=== PATIENT | female | born 1955 | race Caucasian/White ===

== ENCOUNTER 2024-08-25 11:42 | Emergency (ER) | payer MEDICARE, SELFPAY ==
[2024-08-25] VITALS (17 sets, daily range): BP systolic 139–183; BP diastolic 74–86; PULSE 46–56; RESP 12–21; TEMP 36.4–36.6; O2SAT 97–100
--- NOTE | ~2024-08-25 | CT_ITS ---
EXAMINATION: CT brain wo con DATE: 08/25/2024 12:26 INDICATION: Vertigo TECHNIQUE: Computed tomography (CT) of the head was performed without intravenous contrast. Sagittal and coronal reconstructions were performed. The mA was adjusted according to patient size. Iterative reconstruction technique was employed. The dose-length product was 605.33 mGy-cm. COMPARISON: None FINDINGS: Postoperative change of prior left mastoidectomy and cochlear implant placement. The power supply for the implant results in some streak artifact mildly limiting evaluation in the underlying left tempor al parietal region. The bilateral mastoid and middle ear cavities are clear. No acute intracranial he morrhage, acute infarction or abnormal extra axial fluid collection. Symmetric prominence of the sulc i consistent with mild age-appropriate diffuse cerebral volume loss. Ventricles are normal and symmet destini. No mass/mass effect. The orbits are normal. Mild mucoperiosteal thickening the bilateral ethmoid sinuses. IMPRESSION: 1. Normal aging brain. No acute intracranial process. 2. Status post left mastoidectomy with left cochlear implant placement. Reviewed, dictated and finalized at location B.
--- NOTE | ~2024-08-25 | CT_ITS ---
CTA chest PE protocol Ordering provider: Shadi Purcell MD History: 68 years Female with . elevated dimer, pre-syncope . Comparison: None. Technique: CT angiogram chest was performed following timed intravenous injection of contrast. Thin s lice axial images and reformatted coronal images were obtained. Three dimensional reformatted images of the chest were also obtained using a [employer] workstation. . Automated exposure control and iterati ve reconstruction technique were employed. The dose-length product was 297.90 mGy-cm. 100 mL Omnipaqu e 350 was given IV. Findings: PULMONARY ARTERIES: No pulmonary embolus. VISUALIZED THORACIC INLET: Normal. MEDIASTINUM: Aorta/coronary arteries: Mild atheromatous disease. Heart/other: The heart is not enlarged. Lymph nodes: No mediastinal or hilar adenopathy. LUNGS: No pulmonary nodules or masses. No infiltrates or effusions. No pneumothorax. VISUALIZED UPPER ABDOMEN: sliding hiatus hernia. Otherwise, the visualized upper abdomen is normal. MUSCULOSKELETAL: Soft tissues: The superficial soft tissues are normal. Bones: Age appropriate degenerative changes of the spine. IMPRESSION: 1. No pulmonary embolism. 2. No acute cardiopulmonary pathology. 3. Large sliding hiatus hernia. Reviewed, dictated and finalized at location A.
--- NOTE | 2024-08-25 11:53 | ECG_ITS ---
Test Date: 2024-08-25 12:01:11 Measurements Intervals [place] Rate: 48 P: 57 MI: 171 QRS: 42 QRSD: 97 T: 76 QT: 478 QTc: 431 Interpretive Statements SINUS BRADYCARDIA MODERATE T-WAVE ABNORMALITY, CONSIDER ANTEROLATERAL ISCHEMIA [-0.1+ mV T-WAVE IN V3-V6] No previous ECG available for comparison Electronically Signed On 08-25-2024 16:45:52 CDT by Bulmaro Trevino M.D.
[2024-08-25 12:07] LABS: Basophils Absolute Auto 0.1 K/mm3 (0.0-0.1); Basophils Percent Auto 0.8 % (0.2-1.2); Eosinophils Absolute Auto 0.3 K/mm3 (0-0.3); Eosinophils Percent Auto 4.4 % (0-4.4); Hematocrit 37.5 % (37.0-47.0); Hemoglobin 12.7 g/dL (12.0-15.0); Immature Granulocyte Absolute 0.01 K/mm3 (0.00-0.031); Immature Granulocyte Percent A 0.2 % (0-0.5); Lymphocytes Absolute Auto 1.74 K/mm3 (0.9-3.2); Lymphocytes Percent Auto 28.5 % (18.3-44.2); Mean Corpuscular HGB Conc 33.9 g/dl (32-36); Mean Corpuscular Hemoglobin 30.1 pg (26-34); Mean Corpuscular Volume 88.9 fl (80-100); Mean Platelet Volume 9.7 fl (7.4-10.4); Monocytes Absolute Auto 0.5 K/mm3 (0.1-0.6); Monocytes Percent Auto 7.5 % (2.6-8.5); Neutrophils Absolute Auto 3.6 K/mm3 (1.3-6.7); Neutrophils Percent Auto 58.6 % (45.5-73.1); Platelet Count Result 271 k/mm3 (150-375); Red Blood Count 4.22 M/mm3 (4.2-5.4); Red Cell Distribution Width 12.5 % (11.5-14.5); White Blood Count 6.1 K/mm3 (4.5-10.0)
[2024-08-25 12:18] LABS: Alanine Aminotransferase 26 U/L (6-35); Albumin Level 4.2 g/dL (3.5-5.1); Alkaline Phosphatase 75 U/L (38-126); Anion Gap 9 mmol/L (4-12); Aspartate Amino Transferase 29 U/L (14-36); Bilirubin,Total 0.5 mg/dL (0.2-1.3); Blood Urea Nitrogen 14 mg/dL (7-17); Calcium 8.8 mg/dL (8.4-10.2); Carbon Dioxide 25 mmol/L (22-30); Chloride 97 mmol/L (98-107); Estimated CRCL calculation 84 ml/min; Estimated Glomerular Filt Rate > 60; Glucose 95 mg/dL (65-110); Potassium 4.1 mmol/L (3.4-5.0); Sodium 131 mmol/L (137-145)
--- NOTE | 2024-08-25 13:16 | ED_ITS ---
HPI - Dizziness General Chief Complaint: Dizziness Stated Complaint: resolved dizziness/nausea; cough since 08/17 Time Seen by Provider: 08/25/24 11:57 History of Present Illness HPI Narrative: 68-year-old female presenting to the emergency room with chief complaint of intermittent dizziness with symptoms including room spinning sensations and feeling nauseated. Symptoms are intermittent in nature and not associated with any positional changes or exertion. Denies any headache or nauseousness presently. No vision changes. No chest pain shortness a breath, no chest tightness or neck pain. No injury or trauma. Patient states she does not have any chronic medical conditions aside from hypertension which he takes lisinopril 4. No changes to her medications recently. Normal blood glucose. States she has a remote history of vertigo many years ago and this feels similar. Has not take any medications for this. Symptoms have been going on for last 3 days according the patient intermittent. Patient states she has a history of low pulse in the 50s and that is not new for her. No cardiac history otherwise. Review of Systems 2 Review of Systems: As reviewed above in HPI Exam 2 Narrative: GENERAL: [Well-appearing, well-nourished, and in no acute distress.] HEAD: [Normocephalic, atraumatic.] EYES: [PERRLA and EOMI.] ENT: Nares clear, no rhinorrhea or epistaxis. Mucous membranes moist. NECK: Supple. CHEST: [Clear to auscultation. No respiratory distress.] HEART: Bradycardic rate, regular rhythm. No murmur heard. [Normal peripheral pulses.] ABDOMEN: [Soft, nondistended], [nontender], [No rigidity or guarding] EXTREMITIES: Normal range of motion. [No edema.] SKIN: Warm, dry, no rash. NEURO: [No focal deficits]. Alert and oriented [x3.] NIH 0. Normal strength and sensation throughout both arms and legs. No ataxia. No incoordination. No nystagmus. Extraocular movements are intact. PSYCH: [Normal mood and affect.] Course Vital Signs Vital signs: Vital Signs Temperature 36.4 C 08/25/24 11:42 Pulse Rate 50 L 08/25/24 11:42 Respiratory Rate 18 08/25/24 11:42 Blood Pressure 182/76 H 08/25/24 11:42 Pulse Oximetry 98 08/25/24 11:42 Oxygen Delivery Room Air 08/25/24 11:42 Temperature 36.6 C 08/25/24 13:16 Pulse Rate 51 L 08/25/24 15:31 Respiratory Rate 16 08/25/24 15:31 Blood Pressure 158/78 H 08/25/24 15:31 Pulse Oximetry 100 08/25/24 15:31 Oxygen Delivery Room Air 08/25/24 11:42 MDM - Dizziness MDM Narrative Medical decision making narrative: 68-year-old female with a past medical history including hypertension and chronic bradycardia. She presents to the emergency room with dizziness. She describes room spinning sensations associated nauseousness that are short-lived and not associated with positional changes or exertion. Remote history of vertigo. Denies any trauma or injury. Presently she is asymptomatic. Is noted to be hypertensive with a blood pressure 182/76. Pulse 50 and regular sinus bradycardia on the monitor and EKG. Normal temperature, normal oxygen. Has a normal neurological assessment without any focal findings. NIH is 0. Considerations presently are for benign positional paroxysmal vertigo, peripheral vertigo, central vertigo not excluded given patient's age, bradycardia causing hypoperfusion and vertiginous symptoms also possible. ACS possible but less likely. Low suspicion for acute occlusive process. Workup was ordered including CBC, CMP, D-dimer, EKG, troponin, CT of the head. Patient placed on traffic monitor specialist and pulse oximetry. Workup shows no leukocytosis or anemia. Normal platelet count. Electrolytes largely within normal limits, normal renal function, normal glucose and hepatic function. Negative troponin. Elevated D-dimer 1.[address] angiography of the chest was ordered to rule out thromboembolic event that could be causing symptoms such as this or any potential dissection although very unlikely. Normal TSH. Head CT shows normal aging brain, no acute process. CT scan shows no pulmonary embolism, no acute cardiopulmonary disease, large hiatal hernia noted. Patient was re-evaluated frequently, remained asymptomatic. Vital signs remained stable. Patient expressed desire to go home at this time and did not want any further workup. She is discharged home at this time and given referral back to her primary care provider for continued evaluation as well as return precautions provided. Sent a prescription for meclizine p.r.n. as this might help her symptoms if they are recurrent. Medical Records Attestation: I reviewed the patient's medical records. Lab Data Attestation: I reviewed the patient's lab results. 08/25/24 11:57 08/25/24 11:57 Labs: Lab Results 08/25/24 Range/Units 11:57 WBC 6.1 (4.5-10.0) K/mm3 RBC 4.22 (4.2-5.4) M/mm3 Hgb 12.7 (12.0-15.0) g/dL Hct 37.5 (37.0-47.0) % MCV 88.9 (80-100) fl MCH 30.1 (26-34) pg MCHC 33.9 (32-36) g/dl RDW 12.5 (11.5-14.5) % Plt Count 271 (150-375) k/mm3 MPV 9.7 (7.4-10.4) fl Immature Gran % (Auto) 0.2 (0-0.5) % Neut % (Auto) 58.6 (45.5-73.1) % Lymph % (Auto) 28.5 (18.3-44.2) % [place] % (Auto) 7.5 (2.6-8.5) % Eos % (Auto) 4.4 (0-4.4) % Baso % (Auto) 0.8 (0.2-1.2) % Lymph # (Auto) 1.74 (0.9-3.2) K/mm3 [place] # (Auto) 0.5 (0.1-0.6) K/mm3 Eos # (Auto) 0.3 (0-0.3) K/mm3 Baso # (Auto) 0.1 (0.0-0.1) K/mm3 Abs Immat Gran (auto) 0.01 (0.00-0.031) K/mm3 Absolute Neuts (auto) 3.6 (1.3-6.7) K/mm3 Absolute Nucleated RBC 0.000 (0.0-0.012) K/mm3 Nucleated RBC % 0.0 (0.0-0.2) % D-Dimer 1.30 H (<0.48) ug/mL Sodium 131 L (137-145) mmol/L Potassium 4.1 (3.4-5.0) mmol/L Chloride 97 L (98-107) mmol/L Carbon Dioxide 25 (22-30) mmol/L Anion Gap 9 (4-12) mmol/L BUN 14 (7-17) mg/dL Creatinine 0.54 L (0.7-1.0) mg/dL Estim Creat Clear Calc 84 ml/min Estimated GFR > 60 (59 - ) Glucose 95 (65-110) mg/dL Calcium 8.8 (8.4-10.2) mg/dL Total Bilirubin 0.5 (0.2-1.3) mg/dL AST 29 (14-36) U/L ALT 26 (6-35) U/L Alkaline Phosphatase 75 (38-126) U/L Troponin I < 0.012 (0.000-0.034) ng/mL Total Protein 7.0 (6.3-8.2) g/dL Albumin 4.2 (3.5-5.1) g/dL TSH (Reflex) 2.140 (0.465-4.68) uIU/mL Imaging Data Attestation: I personally reviewed and interpreted this imaging study as follows: My impression: Impressions Head CT 08/25/24 12:28 IMPRESSION: 1. Normal aging brain. No acute intracranial process. 2. Status post left mastoidectomy with left cochlear implant placement. Chest CTA 08/25/24 16:12 IMPRESSION: 1. No pulmonary embolism. 2. No acute cardiopulmonary pathology. 3. Large sliding hiatus hernia. Discharge Plan Discharge Clinical Impression: Vertigo, Dizziness Patient Disposition: Home, Self-Care Condition: Stable Instructions: Antibiotic Form, Vertigo (ED), Dizziness (ED) Additional Instructions: Your workup today was largely unremarkable. CT scan shows no acute pathology or injury. Electrolytes are normal. Negative cardiac enzyme. Your symptoms could be related to your blood pressure and heart rate or an underlying process in your ears that could be causing vertigo. Please call your regular doctor for close outpatient primary care provider follow-up and potential further investigations. We will send you home with meclizine which is a medication that can help if your symptoms return and to be taken as needed. Return to the ER if you start developing any lightheadedness to the point that you are going to pass out, chest pain, neck pain, weakness in the arms or legs, inability to walk, vision changes or any other concerns. Patient Language: Wolof Prescriptions: New meclizine 25 mg tablet 25 mg PO TID PRN (Reason: dizziness) 10 Days Qty: 30 0RF Follow-up/Referrals: Edis,Danica Olsen MD [Primary Care Provider] - Time of Disposition: 17:10
[2024-08-25 13:34] LABS: Troponin I < 0.012 ng/mL (0.000-0.034)
--- OUTSIDE RECORDS SUMMARY | 2024-08-25 14:25 | XMS_ITS | Encounter Summary ---
Author Organization [facility] Facility Care Team Providers Care Refractory Technician Name Role Phone Danica Randhawa MD Primary Care Provider Encounter Details Date Type Department Care Team (Latest Contact Info) Description 10/03/2017 Orders Only [facility] CLINCON[facility] ProviderCaitlyn MD [address] [place] [id number] Social History Tobacco Use Types Packs/Day Years Used Date Smoking Tobacco: Never Comments Unknown Sex and Gender Information Value Date Recorded Sex Assigned at Not on file Legal Sex Female 1:35 AM CARE MANAGEMENT ASSOCIATE Gender Identity Female 02/17/2021 3:48 PM CDT Sexual Orientation Straight 02/17/2021 3: 48 PM CDT documented as of this encounter Plan of Treatment Not on file documented as of this encounter Procedures Procedure Name Priority Date/Time Associated Diagnosis Comments SCAN - PATHOLOGY 10/04/2017 12:0 0 AM CDT documented in this encounter Results * SCAN - PATHOLOGY (10/04/2017 12:00 AM CDT) Narrative 10/04/2017 12:00 AM CDT Ordered by an unspecified provider. Historical Provider Final Res ult documented in this encounter Visit Diagnoses Not on filedocumented in this encounter Additional Health Concerns Infection Onset Date Last Indicated Resolved Time COVID: Suspected 01/05/2023 01/05/2023 01/05/2023 7:38 PM CDT COVID: Suspected 01/05/2023 01/05/2023 01/05/2023 10:10 PM CDT COVID: Suspected 07/15/2023 07/15/2023 07/15/2023 4:23 PM CARE MANAGEMENT ASSOCIATE COVID: Suspected 05/23/2024 05/23/2024 05/23/2024 10:31 AM CARE MANAGEMENT ASSOCIATE COVID19 05/23/2024 05/23/2024 06/02/2024 3:05 AM CARE MANAGEMENT ASSOCIATE documented as of this encounter Care Teams Refractory Technician Relationship Specialty Start Date End Date Danica Randhawa MD PCP - General 01/10/17 documented as of this encounter
--- OUTSIDE RECORDS SUMMARY | 2024-08-25 14:25 | XMS_ITS | Encounter Summary ---
Author Organization [facility] Address [address] [facility] Attn: Epic Prelude ADT [place] [id number] Care Team Providers Care Rough Rib Grader Name Role Phone Yosef Wyman MD Primary Care Provider Estephania baig Encounter Details Date Type Department Care Team (Late st Contact Info) Description 01/25/1989 Outpatient Historical Benitez Scott MD [address] [place] [address] Social History Tobacco Use Types Packs/Day Years Used Date Smoking Tobacco: Never Assessed Comments Unknown Sex and Gender Information Value Date Recorded Sex Assigned at Not on file Legal Sex Female 5:16 AM HEMATOLOGY NURSE Gender Identity Not on file Sexual Orientation Not on file documented as of this encounter Plan of Treatment Not on file documented as of this encounter Visit Diagnoses Not on filedocumented in this encounter Care Teams Rough Rib Grader Relationship Specialty Start Date End Date Yosef Wyman MD PCP - General Internal Medicine 08/20/12 documented as of this encounter
--- OUTSIDE RECORDS SUMMARY | 2024-08-25 14:25 | XMS_ITS | Encounter Summary ---
Author Organization [facility] Facility Care Team Providers Care Auto Body Repairer Name Role Phone Danica Randhawa MD Primary Care Provider Encounter Details Date Type Department Care Team (Latest Contact Info) Description 10/04/2017 Orders Only [facility] CLINCON[facility] ProviderCaitlyn MD [address] [place] [id number] Social History Tobacco Use Types Packs/Day Years Used Date Smoking Tobacco: Never Comments Unknown Sex and Gender Information Value Date Recorded Sex Assigned at Not on file Legal Sex Female 1:35 AM TRAFFIC OPERATIONS MANAGER Gender Identity Female 02/17/2021 3:48 PM CDT Sexual Orientation Straight 02/17/2021 3: 48 PM CDT documented as of this encounter Plan of Treatment Not on file documented as of this encounter Procedures Procedure Name Priority Date/Time Associated Diagnosis Comments PROCEDURE - RESULT 10/04/2017 12 :00 AM CDT documented in this encounter Results * PROCEDURE - RESULT (10/04/2017 12:00 AM CDT) Narrative 10/04/2017 12:00 AM CDT Ordered by an unspecified provider. Historical Provider Final Res ult documented in this encounter Visit Diagnoses Not on filedocumented in this encounter Additional Health Concerns Infection Onset Date Last Indicated Resolved Time COVID: Suspected 01/05/2023 01/05/202301/0501/05/2023 7:38 PM CDT COVID: Suspected 01/05/2023 01/05/2023 01/05/2023 10:10 PM CDT COVID: Suspected 07/15/2023 07/15/2023 07/15/2023 4:23 PM TRAFFIC OPERATIONS MANAGER COVID: Suspected 05/23/2024 05/23/2024 05/23/2024 10:31 AM TRAFFIC OPERATIONS MANAGER COVID19 05/23/2024 05/23/2024 06/02/2024 3:05 AM TRAFFIC OPERATIONS MANAGER documented as of this encounter Care Teams Auto Body Repairer Relationship Specialty Start Date End Date Danica Randhawa MD PCP - General 01/10/17 documented as of this encounter
--- OUTSIDE RECORDS SUMMARY | 2024-08-25 14:25 | XMS_ITS | Encounter Summary ---
Author Organization [facility] Facility Care Team Providers Care Cylinder Loader Name Role Phone Danica Randhawa MD Primary Care Provider Encounter Details Date Type Department Care Team (Latest Contact Info) Description 09/26/2017 Orders Only [facility] CLINCON[facility] ProviderCaitlyn MD [address] [place] [id number] Social History Tobacco Use Types Packs/Day Years Used Date Smoking Tobacco: Never Comments Unknown Sex and Gender Information Value Date Recorded Sex Assigned at Not on file Legal Sex Female 1:35 AM ASSISTANT COOK Gender Identity Female 02/17/2021 3:48 PM CDT Sexual Orientation Straight 02/17/2021 3: 48 PM CDT documented as of this encounter Plan of Treatment Not on file documented as of this encounter Procedures Procedure Name Priority Date/Time Associated Diagnosis Comments COLONOSCOPY - SCAN 09/26/2017 12 :00 AM CDT documented in this encounter Results * COLONOSCOPY - SCAN (09/26/2017 12:00 AM CDT) Narrative 09/26/2017 12:00 AM CDT Ordered by an unspecified provider. Historical Provider Final Res ult documented in this encounter Visit Diagnoses Not on filedocumented in this encounter Additional Health Concerns Infection Onset Date Last Indicated Resolved Time COVID: Suspected 01/05/2023 01/05/202301/0501/05/2023 7:38 PM CDT COVID: Suspected 01/05/2023 01/05/2023 01/05/2023 10:10 PM CDT COVID: Suspected 07/15/2023 07/15/2023 07/15/2023 4:23 PM ASSISTANT COOK COVID: Suspected 05/23/2024 05/23/2024 05/23/2024 10:31 AM ASSISTANT COOK COVID19 05/23/2024 05/23/2024 06/02/2024 3:05 AM ASSISTANT COOK documented as of this encounter Care Teams Cylinder Loader Relationship Specialty Start Date End Date Danica Randhawa MD PCP - General 01/10/17 documented as of this encounter
--- OUTSIDE RECORDS SUMMARY | 2024-08-25 14:25 | XMS_ITS | Referral Summary ---
Author Organization [facility] Address [address] [place] [address] Care Team Providers Care Environmental Engineer Scientist Name Role Phone Danica Randhawa MD Primary Care Provider Encounters Date Type Department Care Team Description 08/25/2024 10:30 AM CDT Office Visit [facility] at [address] [phone] Toya Mclain NP Dizziness (Primary Dx); Light headedness; Elevated blood pressure reading 08/25/2024 Nurse Triage [facility] [address] [place] [phone] Danica Randhawa MD from Last 3 Months Allergies Active Allergy Reactions Criticality Noted Date Comments Latex Unknown 09/17/2022 Medications calcium carbonate-vitam in D3 1500 mg (600 mg elemental) -200 units per tabletIndicatio ns:supplement Take 1 tablet by mouth every morning Active lisinopriL (PRINIVIL,ZESTR IL) 40 mg tablet TAKE 1 TABLET BY MOUTH DAILY 100 tablet 2 03/09/2024 Active Active Problems Problem Noted Date Diagnosed Date Hemorrhoids 08/16/2023 Assessment & Plan (08/16/2023 8:09 AM CDT): Having issues with hemorrhoids. Notices hemorrhoids protrude from rectum with walking, and occasional blood on the toilet paper with wiping. She was using witch Jo Ann which seems to help with hemorrhoids. -high-fiber diet -recommend clhi-fcd-gfhiqyo hemorrhoid suppositories b.i.d. for 2 weeks -if ineffective, we will refer to Colorectal surgery Encounter for screening colonoscopy 11/19/2022 Assessment & Plan (08/16/2023 8:08 AM CDT): Colonoscopy May 2023 with prominent mucosa at the IC valve, pathology unremarkable, multiple benign polyps, tortuous colon, and internal hemorrhoids. -repeat colonoscopy May 2028 Primary osteoarthritis of left hip 06/25/2022 Overview (06/25/2022): Added automatically from request for surgery [id number] Cochlear implant in place 07/07/2019 Assessment & Plan (07/07/2019 5:16 PM COMPOUNDING SCALER): She is doing well with her cochlear implant on the left. She is happy with the hearing aid on her right at this time. Gastroesophageal reflux disease 07/15/2018 Asymmetric SNHL (sensorineural hearing loss) 11/2017 Essential hypertension 08/12/2017 Hyperlipidemia 08/12/2017 Recurrent major depressive disorder, in partial remission 08/12/2017 Immunizations Immunization Administration Dates Next Due Influenza, Quadrivalent, Teresita l Culture-based MDCK, Antibiotic Free, Intramuscular 03/26/2019 Influenza, Quadrivalent, Teresita l Culture-based MDCK, Preservative Free, Antibiotic Free, Intramuscular 03/01/2022 Influenza, Quadrivalent, Hig h Dose, Preservative Free, Intrr 03/26/2023,02/20/2021 Influenza, Quadrivalent, Spl it, Preservative Free, Intramuscular 03/23/2020 Influenza, Trivalent, High D ose, Split, Preservative Free, Intramuscular 03/31/2024 Influenza, Trivalent, IM (MDV) 02/01/2013,2011 Influenza, Unspecified 03/07/2020,03/26/2019 Pneumococcal Conjugate PCV 13 10/18/2016 Pneumococcal Conjugate, Unspecified 06/03/2009 Pneumococcal Polysaccharide PPV23 01/26/2020 Tdap 01/09/2013 ZOSTER Recombinant 02/14/2024,11/29/2023 Social History Tobacco Use Types Packs/Day Years Used Date Smoking Tobacco: Former Cigarettes 1 6 1 971 - 1976 Smokeless Tobacco: Never Alcohol Use Standard Drinks/Week Comments Yes 10 (1 standard drink = 0.6 oz pu re alcohol) OASIS D0700: Social Isolation Answer Da te Recorded Frequency of experiencing loneliness or isolatio n Never 08/02/2022 OASIS A1250: Transportation Answer Date Recorded Lack of Transportation (Medical) No 08/02/2022 Lack of Transportation (Non-Medical) No 08/02/2022 Patient Unable or Declines to Respond No 08/02/2022 OASIS B1300: Health Literacy Answer Logan e Recorded Frequency of needing help to read materials from doctor or pharmacy Never 08/02/2022 AUDIT-C Answer Date Recorded Q1: How often do you have a drink containing alcohol? 4 or more times a week 09/26/2023 Q2: How many drinks containi ng alcohol do you have on a typical day when you are drinking? 1 or 2 Q3: How often do you have si x or more drinks on one occasion? Never 09/26/2023 PHQ-2 Answer Date Recorded PHQ-2 Total Score (If total score is 3 or more points, staff should administer the PHQ-9) 0 03/31/2024 PHQ-9 Answer Date Recorded PHQ-9 Total Score 0 09/26/2023 Personal Safety Answer Date Recorded Have you ever been in or are you currently in a harmful physical or emotional relationship or is someone making you feel afraid or unsafe? Denies 05/15/2023 Comments No Sex and Gender Information Value Date Recorded Sex Assigned at Not on file Legal Sex Female 1:35 AM COMPOUNDING SCALER Gender Identity Female 02/17/2021 3:48 PM CDT Sexual Orientation Straight 02/17/2021 3: 48 PM CDT Last Filed Vital Signs Vital Sign Reading Time Taken Comments Blood Pressure 182/80 08/25/2024 11:00 AM CDT Pulse 51 08/25/2024 10:44 AM CDT Temperature 36.5 C (97.7 F) 08/25/2024 10:44 AM CDT Respiratory Rate 20 08/25/2024 10:44 AM CDT Oxygen Saturation 98% 08/25/2024 10:44 AM CDT Inhaled Oxygen Concentration - - Weight 78 kg (172 lb) 08/25/2024 10:44 AM CDT Height 167.6 cm (5' 5.98 ) 08/25/2024 10:44 AM C DT Body Mass Index 27.77 08/25/2024 10:44 AM CDT Plan of Treatment Not on file Medical Devices Implanted Type Area Crew Boat Operator Device Identifier Shelf Expiration Date Model / Serial / Lot [employer] Shell Acet Hip Grp C Por Quad Ti Prime Am 52mm [id number] - Sna - [id number] Implanted:Qty: 1 on 07/24/2022 by Fritz Queen MD at [facility] Other - see comments Left: Hip [employer] [id number] 06/03/2029 [id number] / NA / [id number] [employer] [id number] Procotyl Prime 36mm Liner Acetabular Sterile Latex Free - Sna - [id number] Implanted:Qty: 1 on 07/24/2022 by Fritz Queen MD at [facility] Other - see comments Left: Hip [employer] [id number] 03/03/2030 [id number] / NA / [id number] [employer] Dynasty Lineage 6.5mm 35mm Acetabular Screw Bone Biofoam [id number] - Sna - [id number] Implanted:Qty: 1 on 07/24/2022 by Fritz Queen MD at [facility] Screw Left: Hip [employer] [id number] 04/03/2029 [id number] / NA / [id number] [employer] Dynasty Lineage 6.5mm 20mm Acetabular Screw Bone Biofoam [id number] - Sna - [id number] Implanted:Qty: 1 on 07/24/2022 by Fritz Queen MD at [facility] Screw Left: Hip [employer] [id number] 11/01/2028 [id number] / NA / [id number] [employer] Profemur Tl2 Hip 4 High Offset Stem Femoral Sterile Latex Free [id number] - [id number] Implanted:Qty: 1 on 07/24/2022 by Fritz Queen MD at [facility] Left: Hip [employer] [id number] 12/01/2029 [id number] / / [id number] Description:Implant pause pe rformed [employer] 36mm -3.5mm 05/16 Short Neck Taper Head Femoral Biolox Delta [id number] - [id number] Implanted:Qty: 1 on 07/24/2022 by Fritz Queen MD at [facility] Left: Hip [employer] [id number] 06/03/2030 [id number] / / [id number] Description:Implant pause pe rformed Procedures Procedure Name Priority Date/Time Associated Diagnosis Comments SCREENING MAMMOGRAM BILATERAL W DANY Schedule Routine, Read Routine (OP Routine) 03/31/2024 9:01 AM CDT Encounter for screening mammogram for malignant neoplasm of breast DEXA AXIAL SKELETON BONE DENSITY 1 OR MORE SITES Schedule Routine, Read Routine (OP Routine) 06/17/2023 8:28 AM COMPOUNDING SCALER Post-menopausal COLONOSCOPY 05/15/2023 11:27 AM COMPOUNDING SCALER HEPATITIS C ANTIBODY Routine 06/15/2020 9:22 AM COMPOUNDING SCALER from Last 3 Months or Most Recently Relevant to Health Maintenance Results * Screening Mammogram Bilateral W Dany (03/31/2024 9:01 AM CDT) Anatomical Region Laterality Modality Breast Bilateral Mammography Impressions 03/31/2024 3:57 PM CDT BI-RADS ATLAS category (overall): 1 - Negative There is no mammographic evidence of malignancy. A 1 year screening mammogram is recommended. The patient has been or will be contacted. We recommend annual screening mammography for women at average risk of breast cancer beginning at age 40, based on guidelines of the [employer] [place] [employer] (ACR Practice Parameter for the Performance of Screening and Diagnostic Mammography) and [place] [employer]. For women with and elevated risk of breast cancer, please refer to the ACR Practice Parameter for specific screening recommendations. The patient will be entered into a reminder system with a target due date of 1 year for her next screening exam. Narrative 03/31/2024 3:57 PM CDT Screening Mammogram Bilateral W Dany: 03/31/24 The study was acquired using full field digital technology and interpreted from soft copy. 2D digital mammographic views, as well as 3D digital tomosynthesis were performed in the CC and MLO projections. CLINICAL: Encounter for screening mammogram for malignant neoplasm of breast (due in November). No relevant medical history has been documented for this patient. No known family history of breast cancer. COMPARISONS: 11/12/2022 Screening Mammogram Bilateral W Dany 11/02/2020 Screening Mammogram Bilateral W Dany 07/23/2019 Screening Mammogram Bilateral W Dany BREAST TISSUE: There are scattered areas of fibroglandular density. FINDINGS: No suspicious masses, suspicious calcifications, or other suspicious findings are seen within either breast. There has been no suspicious change. Jennifer Silveira NP IM MAMMO PROCEDURES Final Result * Dexa Axial Skeleton Bone Density 1 or 2 Site (06/17/2023 8:28 AM COMPOUNDING SCALER) Anatomical Region Laterality Modality Body N/A Mammography 06/17/2023 12:0 2 PM COMPOUNDING SCALER Narrative 06/17/2023 12:04 PM COMPOUNDING SCALER EXAM DESCRIPTION: DEXA AXIAL SKELETON BONE DENSITY 1 OR MORE SITES REASON FOR STUDY: 67 y/o year old F with given history of: Postmenopausal status. History of glucocorticoid use. Patient has taken/is taking vitamin-D and calcium. Crew Boat Operator/Model: Club W A (S/N [id number]) CLINICAL INFORMATION: Current height: 64.5 inches Maximum height: 66 inches Weight: 173.8 pounds Risk factors: Glucocorticoid use COMPARISON: 11/02/2020 FINDINGS: AP LUMBAR SPINE L1-L4: Total BMD is 0.898 g/cm2 T-score is -1.4 This is a 2.3% decrease in comparison to prior exam which is not statistically significant. RIGHT HIP: Total BMD is 0.905 g/cm2 T-score is -0.3 No prior right hip for comparison Femoral neck BMD is 0.698 g/cm2 T-score is -1.4 FRAX: 10 year risk for a major osteoporotic fracture is 14 %, 10 year risk for a hip fracture is 1.9 % IMPRESSION: Low bone mass REFERENCE: Bone mineral density: Normal (T-score above or = -1.0) Low bone mass (T-score between -1.0 and -2.5) replaces the previously used term osteopenia Osteoporosis (T-score = or below -2.5) Medical evaluation for secondary causes of low bone mineral density may be appropriate. FRAX is a World Health Organization validated fracture risk assessment tool that calculates a person's 10 year probability of a major osteoporosis related fracture and hip fracture. According to the National Osteoporosis Foundation guidelines, postmenopausal women and men age 50 or older with low bone mass and a 10 year probability of a major osteoporosis related fracture = or greater than 20% or a 10 year probability of a hip fracture = or greater than 3% should be considered for treatment. For further information, including treatment recommendations, please refer to the 2019 ISCD Official Positions (http://www.iscd.org) and the NOF's Clinician's Guide to Prevention and Treatment of Osteoporosis (http://www.nof.org/professionals/clinical-guidelines) THIS IS AN ELECTRONICALLY VERIFIED FINAL REPORT 06/17/2023 12:04 PM - Electronically signed by Minoo Escobedo M.D. TW: TW Report ID: [id number] Reading Location: [id number] Procedure Note Minoo Escobedo MD - 06/17/2023 EXAM DESCRIPTION: DEXA AXIAL SKELETON BONE DENSITY 1 OR MORE SITES REASON FOR STUDY: 67 y/o year old F with given history of:Postmenopausal status. History of glucocorticoid use. Patient has taken/is takingvitamin-D and calcium. Crew Boat Operator/Model: HoloPOPSUGAR A (S/N [id number]) CLINICAL INFORMATION: Current height: 64.5 inches Maximum height: 66 inches Weight: 173.8 pounds Risk factors: Glucocorticoid use COMPARISON: 11/02/2020 FINDINGS: AP LUMBAR SPINE L1-L4: Total BMD is 0.898 g/cm2 T-score is -1.4 This is a 2.3% decrease in comparison to prior exam which is notstatistically significant. RIGHT HIP: Total BMD is 0.905 g/cm2 T-score is -0.3 No prior right hip for comparison Femoral neck BMD is 0.698 g/cm2 T-score is -1.4 FRAX: 10 year risk for a major osteoporotic fracture is 14 %, 10 year risk for ahip fracture is 1.9 % IMPRESSION: Low bone mass REFERENCE: Bone mineral density: Normal (T-score above or = -1.0) Low bone mass (T-score between -1.0 and -2.5) replaces thepreviously used term osteopenia Osteoporosis (T-score = or below -2.5) Medical evaluation for secondary causes of low bone mineral density may be appropriate. FRAX is a World Health Organization validated fracture risk assessmenttool that calculates a person's 10 year probability of a major osteoporosisrelated fracture and hip fracture. According to the National OsteoporosisFoundation guidelines, postmenopausal women and men age 50 or older with low bonemass and a 10 year probability of a major osteoporosis related fracture = or greater than 20% or a 10 year probability of a hip fracture = or greaterthan 3% should be considered for treatment. For further information, including treatment recommendations, please referto the 2019 ISCD Official Positions (http://www.iscd.org) and the NOF's Clinician's Guide to Prevention and Treatment of Osteoporosis (http://www.nof.org/professionals/clinical-guidelines) THIS IS AN ELECTRONICALLY VERIFIED FINAL REPORT 06/17/2023 12:04 PM - Electronically signed by Minoo Escobedo M.D. TW: PURVI Report ID: [id number] Reading Location: [id number] us Danica WALTON DXA PRATIMA ARREGUIN Final Result * COLONOSCOPY (05/15/2023 11:27 AM COMPOUNDING SCALER) Anatomical Region Laterality Modality Other Narrative Procedure Note Francois Romero MD - 05/15/2023 11:27 AM CST [facility] GI ENDOSCOPY Patient Name: Beth Tucker Procedure Date: 05/15/2023 11:27AM Date of : 1955 Admit Type: Outpatient Age: 67 Gender: Female Attending MD: Francois Romero M.D. Room: [facility] ENDOSCOPY ROOM 06 Note Status: Finalized Procedure: Colonoscopy Indications: Screening for colorectal malignant neoplasm Referring MD: Providers: Francois Romero M.D. Medicines: Monitored Anesthesia Care Complications: No immediate complications. Estimated Blood Loss: Estimated blood loss: none. Procedure: Pre-Anesthesia Assessment: - Prior to the procedure, a History and Physicalwas performed, and patient medications and allergieswere reviewed. The risks and benefits of the procedureand the sedation options and risks were discussed withthe patient. All questions were answered and informed consent was obtained. Patient identification and proposed procedure were verified. After reviewingthe risks and benefits, the patient was deemed in satisfactory condition to undergo the procedure.The anesthesia plan was to use monitored anesthesiacare (MAC). Immediately prior to administration of medications, the patient was re-assessed foradequacy to receive sedatives. The heart rate, respiratory rate, oxygen saturations, blood pressure, adequacyof pulmonary ventilation, and response to care were monitored throughout the procedure. The physical status of the patient was re-assessed after the procedure. The benefits, risks and alternatives of theprocedure and sedation were discussed and informed consentwas obtained. All questions were answered. Please referto the signed informed consent document in the medical record. The scope was passed under direct vision.The [id number] colonoscope was introduced through theanus and advanced to the cecum, identified byappendiceal orifice and ileocecal valve. The colonoscopy was performed without difficulty. The patient tolerated the procedure well. The quality of the bowel preparation was good. Scope withdrawal time was 15 minutes. Prep was administered in a split dose. Findings: The perianal and digital rectal examinations were normal. A localized area of prominent mucosa was found at the ileocecalvalve. Biopsies were taken with a cold forceps for histology. A diminutive polyp was found in the hepatic flexure. The polyp was removed with a cold biopsy forceps. Resection and retrieval were complete. A diminutive polyp was found in the descending colon. The polyp was removed with a cold biopsy forceps. Resection and retrieval were complete. Two polyps were found in the recto-sigmoid colon. The polyps were diminutive in size. These polyps were removed with a cold biopsy forceps. Resection and retrieval were complete. A diminutive polyp was found in the rectum. The polyp was removedwith a cold biopsy forceps. Resection and retrieval were complete. Many small-mouthed diverticula were found in the sigmoid colon and descending colon. The left colon was mildly tortuous. Non-bleeding internal hemorrhoids were found during retroflexion. The hemorrhoids were small. The exam was otherwise without abnormality. Impression: - Prominent mucosa at the ileocecal valve.Biopsied. - One diminutive polyp at the hepatic flexure,removed with a cold biopsy forceps. Resected andretrieved. - One diminutive polyp in the descending colon, removed with a cold biopsy forceps. Resected and retrieved. - Two diminutive polyps at the recto-sigmoid colon, removed with a cold biopsy forceps. Resected and retrieved. - One diminutive polyp in the rectum, removed witha cold biopsy forceps. Resected and retrieved. - Diverticulosis in the sigmoid colon and in the descending colon. - Tortuous colon. - Non-bleeding internal hemorrhoids. - The examination was otherwise normal. Recommendation: - Patient has a contact number available for emergencies. The signs and symptoms of potential delayed complications were discussed with thepatient. Return to normal activities tomorrow. Written discharge instructions were provided to thepatient. - High fiber diet. - Continue present medications. - Await pathology results. - Repeat colonoscopy in 5 years for surveillance. Francois Romero M.D. Francois Romero M.D. 05/15/2023 12:07:32 PM . Number of Addenda: 0 Note Initiated On: 05/15/2023 11:27 AM Recognized by the [place] [employer] for promoting quality in endoscopy us Francois Romero MD ENDOSCOPY PROCEDURES Final Resul t * Hepatitis C antibody (06/15/2020 9:22 AM COMPOUNDING SCALER) Hep C Ab 0.2 0.0 - 0.9 s/co ratio [facility] - 01 Comment: Negative: < 0.8 Indeterminate: 0.8 - 0.9 Positive: > 0.9 The CDC recommends that a positive HCV antibody result be followed up with a HCV Nucleic Acid Amplification test (481622). 06/15/2020 9:22 AM COMPOUNDING SCALER 06/15/2020 Narrative [facility] - 06/16/2020 7:09 AM COMPOUNDING SCALER Performed at: [address] [facility] [id number] Non Destructive Evaluation Manager: Sumeet Diaz PhD, Phone: [phone] us Danica Randhawa MD LAB M ICROBIOLOGY - GENERAL ORDERABLES Final Result [facility] - 01 from Last 3 Months or Most Recently Relevant to Health Maintenance Insurance [facility] MEDICARE ADVANTAGE [facility] ADVANTAGE [facility] ADVANTAGE [facility] ADVANTAGE Advance Directives For more information, please contact: [phone] * Full Code (Latest Code Status on File) Date Activated Date Inactivated Comments 07/24/2022 2:12 PM 07/24/2022 10:18 PM Care Teams Environmental Engineer Scientist Relationship Specialty Start Date End Date Danica Randhawa MD PCP - General 01/10/17
--- OUTSIDE RECORDS SUMMARY | 2024-08-25 14:25 | XMS_ITS | Encounter Summary ---
Author Organization [facility] Address [address] [place] [address] Care Team Providers Care Retail Branch Manager Name Role Phone Danica Randhawa MD Primary Care Provider Reason for Visit * Reason Onset Date Comments Dizziness 08/25/2024 Encounter Details Date Type Department Care Team (Late st Contact Info) Description 08/25/2024 Nurse Triage [facility] [address] [place] [phone] Danica Randhawa MD [address] [place] [phone] Social History Tobacco Use Types Packs/Day Years Used Date Smoking Tobacco: Former Cigarettes 1 6 971 - 1976 Smokeless Tobacco: Never Alcohol [...] on file Legal Sex Female 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 Describes as mild spinning at times currently mild lightheadedness. Denies one sided weakness, numbness, chest pain, palpitations, SOB, headache or neck pain, earaches, sinus pain or ear congestion, vision changes. Has had cough for some time now. Pt has been drinking fluids and resting at work sitting but still feels lightheaded now (very mild). RN gave care advice and scheduled at [facility] in 30 minutes for evaluation. To call if worsens. Reason for Disposition Lightheadedness (dizziness) present now, after 2 hours of rest and fluids Protocols used: [id number]-MA * Telephone Encounter - Nga Chiu RN - 08/25/2024 9:56 AM CDT Regarding: dizziness ----- Message from Laurel Laguna sent at 08/25/2024 9:52 AM CDT ----- Symptom Based Call Chief Complaint(s): dizziness Duration: 2 days What type of symptom(s) is the patient experiencing? Red Flag. Is the patient concerned they are experiencing a medical emergency requiring an ambulance? No Additional Comments: Patient said she became dizzy twice on Saturday 3., and is dizzy today. No other symptoms noted. Does message need to be routed? Yes-Action Needed documented in this encounter Plan of Treatment Not on file documented as of this encounter Visit Diagnoses Not on filedocumented in this encounter Care Teams Retail Branch Manager Relationship Specialty Start Date End Date Danica Randhawa MD PCP - General 01/10/17 documented as of this encounter
--- OUTSIDE RECORDS SUMMARY | 2024-08-25 14:25 | XMS_ITS | Encounter Summary ---
Author Organization [facility] Healthcare Address [address] [place] [address] Care Team Providers Care Friction Welding Machine Operator Name Role Phone Danica Randhawa MD Primary Care Provider Reason for Visit * Reason Comments Vertigo An several episodes on Saturday, then had another episode today at work, and has had 2 episodes today, feels like dizziness in her head Encounter Details Date Type Department Care Team (Late st Contact Info) Description 08/25/2024 10:30 AM CDT Office Visit [facility] Care at [address] [address] Toya Mclain NP [address] [place] [address] [address] [place] [address] Dizziness (Primary Dx); Light headedness; Elevated blood pressure reading Social History Tobacco Use Types Packs/Day Years Used Date Smoking Tobacco: Former Cigarettes 1 6 1976 Smokeless Tobacco: Never Alcohol Use Standard [...] on file Legal Sex Female 1:35 AM FLOOR PLAN ADJUSTER Gender Identity Female 02/17/2021 3:48 PM CDT Sexual Orientation Straight 02/17/2021 3: 48 PM CDT documented as of this encounter Last Filed Vital Signs Vital Sign Reading [...] Mass Index 27.77 08/25/2024 10:44 AM CDT documented in this encounter Plan of Treatment Not on file documented as of this encounter Visit Diagnoses Diagnosis Dizziness- Primary Dizziness and giddiness Light headedness Elevated blood pressure reading Elevated blood pressure reading without diagnosis of hypertension documented in this encounter Care Teams Friction Welding Machine Operator Relationship Specialty Start Date End Date Danica Randhawa MD PCP - General 01/10/17 documented as of this encounter
--- OUTSIDE RECORDS SUMMARY | 2024-08-25 14:25 | XMS_ITS | Clinical Summary ---
Author Organization [facility] Address [address] [place] [address] Care Team Providers Care Oral And Maxillofacial Surgery Resident Name Role Phone Danica Randhawa MD Primary Care Provider Allergies Active Allergy Reactions Criticality Noted Date [...] to help with hemorrhoids. -high-fiber diet -recommend ghps-[id number] hemorrhoid suppositories b.i.d. for 2 weeks -if [...] (06/25/2022): Added automatically from request for surgery [id number] Cochlear implant in place 07/07/2019 Assessment & Plan (07/07/2019 5:16 PM FOLDER MACHINE OPERATOR): She is doing well with her cochlear implant on the left. She is happy with the hearing aid on her right at this time. Gastroesophageal reflux disease 07/15/2018 Asymmetric SNHL (sensorineural hearing loss) 11/2017 Essential hypertension 08/12/2017 Hyperlipidemia 08/12/2017 Recurrent major depressive disorder, in partial remission 08/12/2017 Encounters Date Type Department Care Team Description 08/25/2024 10:30 AM CDT Office Visit [facility] Care at [address] [address] Toya Mclain NP Dizziness (Primary Dx); Light headedness; Elevated blood pressure reading 08/25/2024 Nurse Triage [facility] [address] [place] [phone] Danica Randhawa MD from Last 3 Months Immunizations Immunization Administration Dates Next Due Influenza, [...] PPV23 01/26/2020 Tdap 01/09/2013 ZOSTER Recombinant 02/14/2024,11/29/2023 Surgical History Surgery Date Site/Laterality Comments COCHLEAR IMPLANT REVISION COCHLEAR IMPLANT 06/03/2016 - 06/02/2017 COLONOSCOPY x2 TOTAL HIP ARTHROPLASTY Left Medical History Medical History Date Comments Personal history of other di seases of the circulatory system History of hypertension - (A dded by TW Conv) Personal history of other di seases of the digestive system History of esophageal reflux - (Added by TW Conv) Mixed conductive and sensori neural hearing loss Hypertension Family History Medical History Relation Name Comments Lung cancer Father Feroz Hernandez Family history of lung cancer - (Added by TW Conv) Stroke Father Feroz Hernandez Family history of cerebrovascular accident - (Added by TW Conv) Cancer Mother Velma Hernandez Lung cancer Mother Velma Hernandez Family history of lung cancer - (Added by TW Conv) Relation Name Status Comments Father Feroz Hernandez Mother Velma Hernandez Social History Tobacco Use Types Packs/Day Years Used Date Smoking Tobacco: Former Cigarettes 1 1976 Smokeless Tobacco: Never Alcohol Use Standard [...] on file Legal Sex Female 1:35 AM FOLDER MACHINE OPERATOR Gender Identity Female 02/17/2021 3:48 PM CDT Sexual Orientation Straight 02/17/2021 3: 48 PM CDT Obstetrics History Para Term AB IAB SAB Ectopic Multiple Livin g Live Births 5 3 3 2 1 1 Date Outcome GA Total Labor Labor/2nd/3rd Weight Sex Type Anes PTL Anna A1 A5 Name Clin Term Term Term SAB IAB Last Filed Vital Signs Vital Sign Reading [...] 08/25/2024 10:44 AM CDT Plan of Treatment Health Maintenance Due Date Last Done Comments Hepatitis B Screening 1972 DTaP/Tdap/Td Vaccine (2 - Td or Tdap) 01/09/2023 01/09/2013 Covid-19 Vaccine (2023-2 5 season) 2024 05/15/2022, 03/01/2022, 05/23/2021, Additional history exists Fall Risk Assessment 09/25/2024 09/26/2023, 05/15/2023, 03/26/2023, Additional history exists Well Visit 65+ 09/25/2024 09/26/2023, 08/02, 08/23/2021, Additional history exists Breast Cancer Screening-Mammogram 03/31/2025 03/31/2024, 11/12/2022, 11/02/2020, Additional history exists Depression Screening 03/31/2025 03/31/2024, 09/26/2023, 09/26/2023, Additional history exists Osteoporosis Screening-Bone Density Scan 06/17/2025 06/17/2023, 11/02/2020, 11/03/2013, Additional history exists Colon Cancer Screening-Colonoscopy 05/15/2028 05/15/2023, 09/26/2017 Pneumococcal vaccine 65+ Completed 020, 10/18/2016, 06/03/2009 Hepatitis C Screening Completed 06/15/2020 Colon Cancer Screening-CT Colonography Discontinued 05/15/2023, 09/26/2017 Colon Cancer Screening-DNA Stool Discontinued 05/15/20, 09/26/2017 Colon Cancer Screening-FIT Discontinued 05/15/2023, Colon Cancer Screening-Sigmoidoscopy Discontinued 05/15/2023, 09/26/2017 Zoster Vaccine Completed 02/14/2024, 11/29/2023 Influenza Vaccine Completed 03/31/2024, , 03/01/2022, Additional history exists Medical Devices Implanted Type Area Cardiac Care Nurse Device Identifier Shelf Expiration Date Model / Serial / Lot [employer] Shell Acet Hip Grp C Por Quad Ti Prime Am 52mm [id number] - Sna - [id number] Implanted:Qty: 1 on 07/24/2022 by Fritz Queen MD at [facility] Other - see comments Left: Hip [employer] [id number] 06/03/2029 [id number] / NA / [id number] [employer] [id number] Procotyl Prime 36mm Liner Acetabular Sterile Latex Free - Sna - [id number] Implanted:Qty: 1 on 07/24/2022 by Fritz Queen MD at [facility] Other - see comments Left: Hip [employer] [id number] 03/03/2030 [id number] / NA / [id number] [employer] Dynasty Lineage 6.5mm 35mm Acetabular Screw Bone Biofoam [id number] - Sna - [id number] Implanted:Qty: 1 on 07/24/2022 by Fritz Queen MD at [facility] Screw Left: Hip [employer] [id number] 04/03/2029 [id number] / NA / [id number] [employer] Dynasty Lineage 6.5mm 20mm Acetabular Screw Bone Biofoam [id number] - Sna - [id number] Implanted:Qty: 1 on 07/24/2022 by Fritz Queen MD at [facility] Screw Left: Hip [employer] [id number] 11/01/2028 [id number] / NA / [id number] [employer] Profemur Tl2 Hip 4 High Offset Stem Femoral Sterile Latex Free [id number] - [id number] Implanted:Qty: 1 on 07/24/2022 by Fritz Queen MD at [facility] Left: Hip [employer] [id number] 12/01/2029 [id number] / / [id number] Description:Implant pause pe rformed [employer] 36mm -3.5mm 05/16 Short Neck Taper Head Femoral Biolox Delta [id number] - [id number] Implanted:Qty: 1 on 07/24/2022 by Fritz Queen MD at [facility] Left: Hip [employer] [id number] 06/03/2030 [id number] / / [id number] Description:Implant pause pe rformed Procedures Procedure Name Priority Date/Time Associated Diagnosis Comments SCREENING MAMMOGRAM BILATERAL W DANY Schedule Routine, Read Routine (OP Routine) 03/31/2024 9:01 AM CDT Encounter for screening mammogram for malignant neoplasm of breast DEXA AXIAL SKELETON BONE DENSITY 1 OR MORE SITES Schedule Routine, Read Routine (OP Routine) 06/17/2023 8:28 AM FOLDER MACHINE OPERATOR Post-menopausal COLONOSCOPY 05/15/2023 11:27 AM FOLDER MACHINE OPERATOR HEPATITIS C ANTIBODY Routine 06/15/2020 9:22 AM FOLDER MACHINE OPERATOR from Last 3 Months or Most Recently [...] age 40, based on guidelines of the [employer] (ACR Practice Parameter for the Performance of Screening and Diagnostic Mammography) and [employer]. For women [...] 1 or 2 Site (06/17/2023 8:28 AM FOLDER MACHINE OPERATOR) Anatomical Region Laterality Modality Body N/A Mammography 06/17/2023 12:0 2 PM FOLDER MACHINE OPERATOR Narrative 06/17/2023 12:04 PM FOLDER MACHINE OPERATOR EXAM DESCRIPTION: DEXA AXIAL SKELETON BONE DENSITY 1 OR MORE SITES REASON FOR STUDY: 67 y/o year old F with given history of: Postmenopausal status. History of glucocorticoid use. Patient has taken/is taking vitamin-D and calcium. Cardiac Care Nurse/Model: Hologic Horizon A (S/N [id number]) CLINICAL INFORMATION: Current height: 64.5 inches Maximum [...] Minoo Escobedo M.D. TW: PURVI Report ID: [id number] Reading Location: [id number] Procedure Note Minoo Escobedo MD - 06/17/2023 EXAM DESCRIPTION: DEXA AXIAL SKELETON BONE DENSITY 1 OR MORE SITES REASON FOR STUDY: 67 y/o year old F with given history of:Postmenopausal status. History of glucocorticoid use. Patient has taken/is takingvitamin-D and calcium. Cardiac Care Nurse/Model: Rewalon A (S/N [id number]) CLINICAL INFORMATION: Current height: 64.5 inches Maximum [...] Minoo Escobedo M.D. TW: TW Report ID: [id number] Reading Location: [place] [address] Danica Randhawa MD [facility] DXA PROCE KALLIE Final Result * COLONOSCOPY (05/15/2023 11:27 AM FOLDER MACHINE OPERATOR) Anatomical Region Laterality Modality Other Narrative Procedure Note Francois Romero MD - 05/15/2023 11:27 AM CST [facility] GI ENDOSCOPY Patient Name: Beth Tucker Procedure Date: 05/15/2023 11:27AM Date of : 1955 Admit Type: Outpatient Age: 67 Gender: Female Attending MD: Francois Romero M.D. Room: [facility] ENDOSCOPY ROOM 06 Note Status: Finalized Procedure: [...] The scope was passed under direct vision.The [id number] colonoscope was introduced through theanus and advanced [...] On: 05/15/2023 11:27 AM Recognized by the [place] [employer] for promoting quality in endoscopy us Francois oRmero MD ENDOSCOPY PROCEDURES Final Resul t * Hepatitis C antibody (06/15/2020 9:22 AM FOLDER MACHINE OPERATOR) Hep C Ab 0.2 0.0 - 0.9 s/co ratio [facility] - 01 Comment: Negative: < 0.8 Indeterminate: 0.8 - 0.9 Positive: > 0.9 The CDC recommends that a positive HCV antibody result be followed up with a HCV Nucleic Acid Amplification test (317799). 06/15/2020 9:22 AM FOLDER MACHINE OPERATOR 06/15/2020 Narrative [facility] - 06/16/2020 7:09 AM FOLDER MACHINE OPERATOR Performed at: - [facility] [address] [id number] Heating Operators Engineer: Sumeet Diaz PhD, Phone: [phone] us Danica Randhawa MD LAB M ICROBIOLOGY - GENERAL ORDERABLES Final Result [facility] - 01 from Last 3 Months or Most Recently Relevant to Health Maintenance Insurance [facility] MEDIC[facility] ADV[facility] [employer] MEDICARE ADVANTAGE [facility] Advance Directives For more information, please contact: [phone] * Full Code (Latest Code Status on File) Date Activated Date Inactivated Comments 07/24/2022 2:12 PM 07/24/2022 10:18 PM Care Teams Oral And Maxillofacial Surgery Resident Relationship Specialty Start Date End Date Danica Randhawa MD PCP - General 01/10/17
--- OUTSIDE RECORDS SUMMARY | 2024-08-25 14:25 | XMS_ITS | Encounter Summary ---
Author Organization [facility] Address [address] [facility] Attn: Epic Prelude ADT [place] [address] Care Team Providers Care Tool And Die Repairer Name Role Phone Yosef Wyman MD Primary Care Provider Estephania baig Encounter Details Date Type Department Care Team (Late st Contact Info) Description 04/11/1989 Outpatient Historical Benitez Scott MD [address] [place] [address] Social History Tobacco Use Types Packs/Day Years Used Date Smoking Tobacco: Never Assessed Comments Unknown Sex and Gender Information Value Date Recorded Sex Assigned at Not on file Legal Sex Female 5:16 AM MARKETING ADMINISTRATOR Gender Identity Not on file Sexual Orientation Not on file documented as of this encounter Plan of Treatment Not on file documented as of this encounter Visit Diagnoses Not on filedocumented in this encounter Care Teams Tool And Die Repairer Relationship Specialty Start Date End Date Yosef Wyman MD PCP - General Internal Medicine 08/20/12 documented as of this encounter
--- OUTSIDE RECORDS SUMMARY | 2024-08-25 14:25 | XMS_ITS | Encounter Summary ---
Author Organization [facility] Address [address] [place] [address] Care Team Providers Care Electronics Production Supervisor Name Role Phone Yosef Wyman MD Primary Care Provider Estephania baig Encounter Details Date Type Department Care Team (Latest Contact Info) Description 11/07/1999 Outpatient Historical [facility] Rupert Monge Other screening mammogram (Primary Dx) Social History Tobacco Use Types Packs/Day Years Used Date Smoking Tobacco: Never Assessed Comments Unknown Sex and Gender Information Value Date Recorded Sex Assigned at Not on file Legal Sex Female 5:16 AM PATIENT SERVICE ASSOCIATE Gender Identity Not on file Sexual Orientation Not on file documented as of this encounter Plan of Treatment Not on file documented as of this encounter Visit Diagnoses Diagnosis Other screening mammogram- Primary documented in this encounter Care Teams Electronics Production Supervisor Relationship Specialty Start Date End Date Yosef Wyman MD PCP - General Internal Medicine 08/20/12 documented as of this encounter
--- OUTSIDE RECORDS SUMMARY | 2024-08-25 14:25 | XMS_ITS | Clinical Summary ---
Author Organization [facility] Address [address] [place] [address] Care Team Providers Care Clinical Data Management Director Name Role Phone Danica Randhawa MD Primary Care Provider Source Comments [facility],non-owned Affiliates and Associated Physician Practices is amultiple site organization consisting of ambulatory clinics and hospital sitesin [place], [place], [place] and [place]. This disclosure is being madepursuant to the Care Everywhere program and may not contain all information available regarding this patient. Last updated 18.[facility] Allergies No known active allergies Medications * Be aware that medications may not be up to date on this document. Alwaysverify current medications with the patient. Medication Sig Dispensed Refills Start Date End Date Status Citalopram Hydrobromide (CITALOPRAM PO) Take 20 mg by mouth Active LISINOPRIL PO Take 20 mg by mouth Active OMEPRAZOLE PO Active Calcium Citrate-Vitamin D (CALCIUM + D PO) Active benzonatate (TESSALON) 200 MG capsuleIndications:Co ugh Take 1 capsule by mouth 3 times daily as needed for Cough 30 capsule 06/04/2018 Active fluticasone propionate (FLONASE) 50 MCG/ACT nasal sprayIndications:Acut e maxillary sinusitis, recurrence not specified [place] 2 sprays into each nostril once daily 1 bottles 06/04/2018 Active Family History Medical History Relation Name Comments CVA Father Cancer - Lung Mother Asthma Neg Hx Autoimmune Disease Neg Hx Bipolar Disorder Neg Hx Cancer - Breast Neg Hx Cancer - Colon Neg Hx Cancer - Other Neg Hx Cancer - Ovarian Neg Hx Cancer - Pancreatic Neg Hx Cancer - Prostate Neg Hx Depression Neg Hx Eczema Neg Hx Hypertension Neg Hx Migraine Neg Hx Osteoporosis Neg Hx Seizures Neg Hx Sudd. <30 Neg Hx Thyroid Disease Neg Hx Ulcerative Colitis Neg Hx Relation Name Status Comments Father Mother Social History Tobacco Use Types Packs/Day Years Used Date Smoking Tobacco: Former Smokeless Tobacco: Never Tobacco Cessation:Counseling Given: No Alcohol Use Standard Drinks/Week Comments No 0 (1 standard drink = 0.6 oz pur e alcohol) Sex and Gender Information Value Date Recorded Sex Assigned at Not on file Gender Identity Not on file Sexual Orientation Not on file Last Filed Vital Signs Vital Sign Reading Time Taken Comments Blood Pressure 130/82 06/04/2018 12:10 PM BOBBIN COLLECTOR Pulse 59 06/04/2018 12:10 PM BOBBIN COLLECTOR Temperature 37.3 C (99.2 F) 06/04/2018 12:10 PM BOBBIN COLLECTOR Respiratory Rate 16 06/04/2018 12:10 PM BOBBIN COLLECTOR Oxygen Saturation 97% 06/04/2018 12:10 PM BOBBIN COLLECTOR Inhaled Oxygen Concentration - - Weight 95.3 kg (210 lb) 06/04/2018 12:10 PM BOBBIN COLLECTOR Height 165.1 cm (5' 5 ) 06/04/2018 12:10 PM BOBBIN COLLECTOR Body Mass Index 34.95 06/04/2018 12:10 PM BOBBIN COLLECTOR Plan of Treatment Health Maintenance Due Date Last Done Comments BONE DENSITY TESTING 1955 COLOGUARD (AGES 45-75) - COLON CA SCREENING 1955 COLON MONITORING 1955 COLONOSCOPY - COLON CA SCREENING 1955 CT COLONOGRAPHY - COLON CA SCREENING 1955 Colorectal Cancer Screening 1955 FIT - COLON CA SCREENING 1955 FLEX SIG - COLON CA SCREENING 1955 LIPID TESTING 1955 MAMMOGRAM 1955 HEPATITIS C SCREENING 10/22/1972 DTAP/TDAP/TD VACCINES (1 - Tdap) 1973 PNEUMOCOCCAL VACCINE 50+ (1 of 2 - PCV) 1973 ZOSTER VACCINE (1 of 2) 2004 SCREENING FOR DIABETES 08/04/2017 COVID-19 VACCINE (1 - 2023- season) 2024 INFLUENZA VACCINE (#1) 2024 2, 03/23/2020, 03/07/2020, Additional history exists DEPRESSION SCREENING 06/03/2024 Respiratory Syncytial Virus (RSV) Vaccine Pt: or over 60 yrs (1 - 1-dose 75+ series) 2029 HEPATITIS B VACCINE Aged Out No longe r eligible based on patient's age to complete this topic HIB VACCINE Aged Out No longer eligi ble based on patient's age to complete this topic HPV VACCINE Aged Out No longer eligi ble based on patient's age to complete this topic MENINGOCOCCAL (Group B) VACCINE SHARED DECISION-MAKING Aged Out No longer eligible based on patient's age to complete this topic MENINGOCOCCAL GROUPS A/C/Y/W VACCINE Aged Out No longer eligible based on patient's age to complete this topic Care Teams Clinical Data Management Director Relationship Specialty Start Date End Date Danica Randhawa MD PCP - General Internal Medicine 08/04/17
--- OUTSIDE RECORDS SUMMARY | 2024-08-25 14:25 | XMS_ITS | Encounter Summary ---
Author Organization [facility] Care Team Providers Care Hospice Spiritual Care Coordinator Name Role Phone Danica Randhawa MD Primary Care Provider Encounter Details Date Type Department Care Team (Latest Contact Info) Description 05/06/2017 Orders Only [facility] ProviderCaitlyn MD [address] [place] [id number] Social History Tobacco Use Types Packs/Day Years Used Date Smoking Tobacco: Never Comments Unknown Sex and Gender Information Value Date Recorded Sex Assigned at Not on file Legal Sex Female 1:35 AM TERMINAL SUPERINTENDENT Gender Identity Female 02/17/2021 3:48 PM CDT Sexual Orientation Straight 02/17/2021 3: 48 PM CDT documented as of this encounter Plan of Treatment Not on file documented as of this encounter Procedures Procedure Name Priority Date/Time Associated Diagnosis Comments COLONOSCOPY - SCAN 05/06/2017 12 :00 AM TERMINAL SUPERINTENDENT documented in this encounter Results * COLONOSCOPY - SCAN (05/06/2017 12:00 AM TERMINAL SUPERINTENDENT) Narrative 05/06/2017 12:00 AM TERMINAL SUPERINTENDENT Ordered by an unspecified provider. Historical Provider Final Res ult documented in this encounter Visit Diagnoses Not on filedocumented in this encounter Additional Health Concerns Infection Onset Date Last Indicated Resolved Time COVID: Suspected 01/05/2023 01/05/2023 01/05/2023 7:38 PM CDT COVID: Suspected 01/05/2023 01/05/2023 01/05/2023 10:10 PM CDT COVID: Suspected 07/15/2023 07/15/2023 07/15/2023 4:23 PM TERMINAL SUPERINTENDENT COVID: Suspected 05/23/2024 05/23/2024 05/23/2024 10:31 AM TERMINAL SUPERINTENDENT COVID19 05/23/2024 05/23/2024 06/02/2024 3:05 AM TERMINAL SUPERINTENDENT documented as of this encounter Care Teams Hospice Spiritual Care Coordinator Relationship Specialty Start Date End Date Danica Randhawa MD PCP - General 01/10/17 documented as of this encounter
--- OUTSIDE RECORDS SUMMARY | 2024-08-25 14:25 | XMS_ITS | Continuity of Care Document ---
Author Organization [facility] Address [address] [place] [address] Phone Care Team Providers Care Event Decorator And Designer Name Role Phone Danica Randhawa MD Unavailable Unavailable Allergies, Adverse Reactions, Alerts Substance Reaction Status Criticality No Known Drug Allergies Other Active No I nformation Medications Medication Instructions Dosage Effective Dates (start - stop) Status Comments citalopram 20 mg tablet take 1 tablet by oral route every day 20 MG - Active LISINOPRIL 20MG TAB Take 1 tablet by gerda th every day 20 MG - Active calcium carbonate 600 mg (1,500 mg)-vitamin D3 400 unit tablet take 1 Tablet by Oral route 2 times every day 1 Tablet - Active red yeast rice 600 mg capsule take 2 capsules daily - Active omeprazole 20 mg tablet,delayed release take 1 Tablet by Oral route every day 1 Tablet - Active Centrum Ultra Women's 18 mg-400 mcg tablet take 1 tablet by oral route every day with food - Active Advance Directives Directive Yes / No Effective Date File Name No Information Encounters Encounter Description Practice Location Reason(s) For Visit Diagnoses Date Provider Providers Copied on Encounter [facility], [address], [place], [place], [id number] , [place] tel:[phone] Jose No Information 5201 7 Edis Mishra. [facility], [address], [place]. tel:[phone] [facility], [address], [place], [place], [address] , [place] tel: [phone] [place] No Information [facility] [address] [place], [place], [address], [place]. tel:[phone] [facility], [address], [place], [place], [address] , tel: [phone] Jose Unspecified hearing loss, unspecified ear [facility] [address] [place], [place], [address], [place]. tel:[phone] [facility], [address], [place], [place], [address] , tel: [phone] Jose Encounter for immunization Edis Mishra. [address], [facility], [place]. tel:[phone] Referring Provider: Danica Randhawa, [address], [facility]. tel:[phone] [facility], [address], [place], [place], [address] , tel: [phone] Jose No Information Edis Mishra. [address], [address], [place]. tel:[phone] [facility], [address], [place], [place], [address] , tel: [phone] [place] Routine health maintenanceEssentia l hypertension with goal blood pressure less than 140/90Mixed hyperlipidemiaMild episode of recurrent major depressive disorderAbnormal blood sugarRoutine gynecological examination 7 Edis Mishra. [address] [facility], [place], [address], [place]. tel:[phone] Referring Provider: Danica Randhawa, [address] [address], [place], [facility]. tel:[phone] [facility], [address], [place], [place], [address] , [place] tel: [phone] [place] Mixed hyperlipidemiaPre-d iabetesBenign essential hypertensionEncount er for long-term current use of medication 7 Edis Mishra. [address] [address], [place], [address], . tel:[phone] [facility], [address], [place], [place], [address] , [place] tel: [phone] [place] Bronchitis 6 Garo Navas. [address] [place], [place], [address], [place]. tel:[phone] [facility], [address], [place], [place], [address] , tel: [phone] [place] Essential hypertension with goal blood pressure less than 140/90Mixed hyperlipidemiaGastr oesophageal reflux disease, esophagitis presence not specifiedPre-diabet [facility] maintenanceMild episode of recurrent major depressive disorder 6 Edis Mishra. [address] [address], [place], [address], [place]. tel:[phone] Referring Provider: Danica Randhawa, [address], [facility]. tel:[phone] [facility], [address], [place], [place], [address] , tel: [phone] Jose Essential (primary) hypertensionAdjustm ent disorder, unspecifiedMixed hyperlipidemiaEncou nter for general adult medical examination without abnormal findingsDepressionI mpaired fasting glucosePrediabetes 5 Garo Navas. [address] [place], [place], [address], [place]. tel:[phone] Referring Provider: Yosef Arzate, [address] [place], [address] . tel:[phone] [facility], [address], [place], [place], [address] , [place] tel: [phone] [place] Benign essential hypertensionMixed hyperlipidemiaOther acute reactions to stressEsophageal refluxScreening for malignant neoplasm of breast 5 [facility] Katelyn. [address] [place], [address], [place]. tel:[phone] Referring Provider: Yosef Arzate, [address] [place], [address] . tel:[phone] [facility], [address], [place], [place], [address] , [place] tel: [phone] Jose Hearing loss 4 Garo Navas. [address] [place], [place], [address], [place]. tel:[phone] [facility], [address], [place], [place], [address] , [place] tel: [phone] Jose Hypertension, BenignMixed HyperlipidemiaDepre ssion 4 Garo Navas. [address] [place], [place], [address], [place]. tel:[phone] Referring Provider: Yosef Arzate, [address] [place], [address] . tel:[phone] [facility], [address], [place], [place], [address] , [place] tel: [phone] Jose History of fall/At Risk For FallingScreening for unspecified conditionHypertensi on, BenignUnspecified acute reaction to stressMixed HyperlipidemiaMixed HyperlipidemiaRouti ne general medical examination at [facility] palpitationsRoutine Medical Exam Aug- 4 [facility] Katelyn. [address] [place], [address], [place]. tel:[phone] Referring Provider: Yosef Arzate, [address] [place], [address] . tel:[phone] [facility], [address], [place], [place], [address] , [place] tel: [phone] Jose No Information Feb-0 3 Garo Navas. [address] [place], [place], [address], [place]. tel:[phone] [facility], [address], [place], [place], [address] , tel: [phone] Jose BENIGN HYPERTENSIONStress reaction 3 Garo Navas. [address] [place], [place], [address], [place]. tel:[phone] Referring Provider: Yosef Arzate, [address] [place], [address] . tel:[phone] [facility], [address], [place], [place], [address] , [place] tel: [phone] [place] No Information 3 Garo Navas. [address] [place], [place], [address], [place]. tel:[phone] [facility], [address], [place], [place], [address] , [place] tel: [phone] Jose BENIGN HYPERTENSIONAllergi c rhinitisFatigueRout ine general medical examination at [facility] general medical examination at a health care facility 3 Héctor Zepeda. [address] [place], [address], [place]. tel:[phone] Referring Provider: Yosef Arzate, [address] [place], [address] . tel:[phone] [facility], [address], [place], [place], [address] , [place] tel: [phone] [place] No Information 1 Gar[address] [place] [address], [id number], [place]. tel:[phone] [facility], [address], [place], [place], [address] , tel: [phone] Jose TIETZE'S DISEASEBENIGN HYPERTENSION 1 Garo Perez [address] [place] [address], [id number], [place]. tel:[phone] [facility], [address], [place], [place], [address] , tel: [phone] Jose VACCIN FOR INFLUENZAND VAC STRPTCS PNEUMNI B 9 Garo Navas. [address] [place], [place], [address], [place]. tel:[phone] [facility], [address], [place], [place], [address] , tel: [phone] Jose ROUTINE MEDICAL EXAM 7 Garo Navas. [address] [place], [place], [address], [place]. tel:[phone] [facility], [address], [place], [place], [address] , tel: [phone] Jose COUGHESOPHAGEAL REFLUX 2 [facility]. [address] [place] [address], [address], . Family History Family Member Type Diagnosis Age At Onset Mother Problem (finding) osteoporosis Sister Problem (finding) Alive and well Mother Problem (finding) malignant neoplasm of l sheron Brother Problem (finding) Parkinson's disease grandparent Problem (finding) coronary arterioscleros is grandparent Problem (finding) alzheimer's disease Father Problem (finding) coronary arterioscleros is Mother Problem (finding) Irritable bowel disease Brother Problem (finding) Alive and well Father Problem (finding) stroke Immunizations Vaccine Date Status Comments Pneumococcal conjugate PCV administere d Source: New Immunization Record Tdap administered Source: New Imm unization Record Boostrix Inj 0.5 ml administered Source: New Immunization Record flu (split) (3 yrs or older) administered Source: Other Provider flu (split) (3 yrs or older) administered Source: New Immunization Record 01354 - Influenza administered Source: So urce Unspecified 94071 - Influenza administered Source: So urce Unspecified 39610 - Pneumococcal_PPV23 administered S ource: Source Unspecified 10843 - Influenza administered Source: So urce Unspecified Tetanus toxoid administered Source: New I mmunization Record MMR administered Source: New Imm unization Record hep B (adult) administered Source: Other Provider Payers Payer name Insurance type Covered constitution party ID Authoriza tion(s) [facility] [id number] [facility] [id number] Social History Type Description Quantity Date Captured Comments Sex Female Smoking Status No Information Chief Complaint And Reason For Visit No Information Reason For Referral Reason For Referral No Information History Of Present Illness Encounter Date Complaint History Of Prese nt Illness No Information Functional Status Date Functional Assessmen t No Information Instructions Date Instruction Additional Infor mation No Information Assessments Type Assessment Date No Information Patient Care Teams Name Effective Dates (start - stop) Status Members No Information
--- OUTSIDE RECORDS SUMMARY | 2024-08-25 14:25 | XMS_ITS | Clinical Summary ---
Author Organization [facility] Address [address] [place] [address] Phone Care Team Providers Care Edge Trimmer Mechanic Name Role Phone Yosef Wyman MD Primary Care Provider Estephania baig Allergies No known active allergies Medications LISINOPRIL ORAL Take by mouth. Active RED YEAST RICE ORAL Take by mouth. Active MULTIVITAMINS WITH FLUORIDE (MULTI-VITAMIN ORAL) Take by mouth. Active CALCIUM ORAL Take by mouth. Active citalopram (CELEXA) 20 mg tablet Take 20 mg by mouth daily at bedtime. Active Active Problems No known active problems Immunizations Immunization Administration Dates Next Due Influenza Seasonal Unspecified Formulation IM ,05/02/2012 Pneumococcal conjugate, unspecified formulation 06/03/2009 Family History Medical History Relation Name Comments Parkinson's Disease Brother Heart Disease Father Hypertension Father Stroke Father Cancer Mother lung Relation Name Status Comments Brother Father Mother Social History Tobacco Use Types Packs/Day Years Used Date Smoking Tobacco: Never Alcohol Use Standard Drinks/Week Comments Yes 11.7 (1 standard drink = 0.6 oz pure alcohol) Comments No Sex and Gender Information Value Date Recorded Sex Assigned at Not on file 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 Gender Identity Not on file Sexual Orientation Not on file Occupation Industry Job Start Date Job End Date self employed Not on file Not on file Not on file Last Filed Vital Signs Vital Sign Reading Time Taken Comments Blood Pressure 142/80 11/03/2013 2:13 PM CDT Pulse - - Temperature - - Respiratory Rate - - Oxygen Saturation - - Inhaled Oxygen Concentration - - Weight 93 kg (205 lb) 11/03/2013 2:13 PM CDT Height 165.1 cm (5' 5 ) 11/03/2013 2:13 PM CDT Body Mass Index 34.11 11/03/2013 2:13 PM CDT Plan of Treatment Health Maintenance Due Date Last Done Comments DTAP/TDAP/TD VACCINES (1 - Tdap) 1973 FIT-DNA Q 3 years 10/28/1999 FIT/FOBT Q 1 year 10/28/1999 Flex Sig/CT Colonography Q 5 years 10/28/1999 PNEUMOCOCCAL VACCINE 50+ YEA RS (1 of 1 - PCV) 2004 06/03/2009 ZOSTER VACCINE (1 of 2) 2004 BREAST CANCER SCREENING 11/03/2014 11/04/19 14, 08/20/2012, 03/06/2010 OSTEOPOROSIS SCREENING 11/04/2015 11/03/2013, 2006 COLORECTAL SCREENING 06/03/2016 06/03/2006 (Previously completed) Colorectal Cancer Screening 06/03/2016 INFLUENZA VACCINE (#1) 2024 02/01/2013, 2011 RSV VACCINE (60+ or ) (1 - 1-dose 75+ series) 2029 Procedures Procedure Name Priority Date/Time Associated Diagnosis Comments MAMMO SCREEN BILAT W OR WO CAD Routine 11/03/2013 3:38 PM CDT Other screening mammogram XR DEXA BONE DENSITY AXIAL 1 OR MORE SITES Routine 11/03/2013 2:52 PM CDT Osteopenia from Last 3 Months or Most Recently Relevant to Health Maintenance Results * MAMMO DIGITAL SCREEN BILAT (11/03/2013 3:38 PM CDT) Anatomical Region Laterality Modality Breast Bilateral Mammography 11/03/2013 3:31 PM CDT Narrative 11/05/2013 9:07 AM CDT BILATERAL FULL FIELD DIGITAL SCREENING MAMMOGRAM WITH CAD. 11/03/13 HISTORY: Routine Screening. TECHNIQUE: Full field digital screening mammography of both breasts were obtained. COMPARISON: August 2012 BREAST PARENCHYMAL COMPOSITION: Scattered fibroglandular densities. FINDINGS: No new dominant masses, suspicious calcifications, parenchymal asymmetry or areas of architectural distortion are identified in either breast. Since the prior study, there has been no significant interval change. The computer aided detection system was utilized. OVERALL ASSESSMENT: BI-RADS category 1: Negative. RECOMMENDATION: Annual mammography is recommended. Dictated from [facility] Procedure Note Noble Kaur MD - 11/05/2013 BILATERAL FULL FIELD DIGITAL SCREENING MAMMOGRAM WITH CAD. 11/03/13 HISTORY: Routine Screening. TECHNIQUE: Full field digital screening mammography of both breasts were obtained. COMPARISON: August 2012 BREAST PARENCHYMAL COMPOSITION: Scattered fibroglandular densities. FINDINGS: No new dominant masses, suspicious calcifications, parenchymal asymmetry or areas of architectural distortion are identified in either breast. Since the prior study, there has been no significant interval change. The computer aided detection system was utilized. OVERALL ASSESSMENT: BI-RADS category 1: Negative. RECOMMENDATION: Annual mammography is recommended. Dictated from [facility] Maria De Jesus Loera MD MAMMO ORDERABLES Final Result * XR DEXA BONE DENSITY AXIAL 1 OR MORE SITES (11/03/2013 2:52 PM CDT) Anatomical Region Laterality Modality Digital Radiogra phy 11/03/2013 2:43 PM CDT Narrative 11/03/2013 3:05 PM CDT XR DEXA BONE DENSITY AXIAL 1 OR MORE SITES Dictated from Location 1 ([facility]) HISTORY: 58 yo F with postmenopausal symptoms on calcium supplementation on vitamin D supplementation needing evaluation for osteoporosis. PROCEDURE: Using a [employer] dual energy x-ray absorptiometry system, the patient's bone mineral density was measured over the lumbar spine and femurs. Comparison was made to age and sex matched normal values. FINDINGS: Lumbar Spine (L1-L4) Bone Mineral Density = 1.067 gm/cm2 Compared to young adult (T-score), difference of -0.9 Standard Deviations. The patient's spine BMD is normal when compared to that of a young adult. Left Femoral Neck Bone Mineral Density = 0.966 gm/cm2 Compared to young adult (T-score), difference of -0.5 Standard Deviations. The patient's left femoral neck BMD is normal when compared to that of a young adult. Right Femoral Neck Bone Mineral Density = 0.910 gm/cm2 Compared to young adult (T-score), difference of -0.9 Standard Deviations. The patient's right femoral neck BMD is normal when compared to that of a young adult. No prior DEXA studies are available for comparison. Procedure Note Colby Fofana DO - 11/03/2013 XR DEXA BONE DENSITY AXIAL 1 OR MORE SITES Dictated from Location 1 ([facility]) HISTORY: 58 yo F with postmenopausal symptoms on calcium supplementation on vitamin D supplementation needing evaluation for osteoporosis. PROCEDURE: Using a [employer] dual energy x-ray absorptiometry system, the patient's bone mineral density was measured over the lumbar spine and femurs. Comparison was made to age and sex matched normal values. FINDINGS: Lumbar Spine (L1-L4) Bone Mineral Density = 1.067 gm/cm2 Compared to young adult (T-score), difference of -0.9 Standard Deviations. The patient's spine BMD is normal when compared to that of a young adult. Left Femoral Neck Bone Mineral Density = 0.966 gm/cm2 Compared to young adult (T-score), difference of -0.5 Standard Deviations. The patient's left femoral neck BMD is normal when compared to that of a young adult. Right Femoral Neck Bone Mineral Density = 0.910 gm/cm2 Compared to young adult (T-score), difference of -0.9 Standard Deviations. The patient's right femoral neck BMD is normal when compared to that of a young adult. No prior DEXA studies are available for comparison. Maria De Jesus Loera MD DIAGNOSTIC IMAGING ORDERABLES Fi nal Result from Last 3 Months or Most Recently Relevant to Health Maintenance Insurance [facility] BLUE ACCESS/TRUE BLUE PPO Care Teams Edge Trimmer Mechanic Relationship Specialty Start Date End Date Yosef Wyman MD PCP - General Internal Medicine 08/20/12
== END 2024-08-25 17:31 | disposition home or self-care (01) ==
PROVIDERS: Emergency Provider Student in an Organized Health Care Education/Training Program; PCP Internal Medicine
DX: R42 Dizziness and giddiness (principal); I10 Essential (primary) hypertension; R00.1 Bradycardia, unspecified; K44.9 Diaphragmatic hernia without obstruction or gangrene
CPT/HCPCS: 36415; 70450; 71275; 80053; 84443; 84484; 85025; 85380; 93005; 99284; Q9967